=== PATIENT | female | born 1955 | race African-American/Black ===

== ENCOUNTER 2021-09-30 08:10 | Observation (INO) ==
[2021-09-30 14:27] LABS: PT Patient Result 11.3 SECS (10.5-12.0); Partial Thromboplastin Time 23.9 SECS (23.8-32.1)
[2021-09-30 14:49] LABS: Albumin 3.2 G/DL (3.4-5.0); Bilirubin,Total 0.5 MG/DL (0.20-1.00); Calcium 8.7 MG/DL (8.5-10.1); Osmolality,Calculated 281.4 MOS/KG (273-304); Potassium 5.3 MMOL/L (3.5-5.1); Thyroid Stimulating Hormone 2.08 uIU/ml (0.358-3.74); Total Protein 7.3 G/DL (6.4-8.2)
[2021-09-30] MEDS ORDERED: SODIUM CHLORIDE 0.9% 1,000 ML IV STA (15:02)
[2021-09-30 15:32] LABS: RBC,Urine 1 /HPF (0-4); Squamous Epithelial Cell,Urine Occasional /HPF (0-10)
[2021-09-30 15:33] LABS: Bilirubin,Urine Negative (Negative); Blood, Urine Negative (Negative); Glucose,Urine (UA) Negative (Negative); Ketones,Urine Negative (Negative); Nitrite,Urine Negative (Negative); Protein,Urine 100 mg/dL (Negative); Urine Appearance Clear (Clear); Urine Color Yellow (Yellow); Urine Urobilinogen 0.2 eU/dL (<2.0); Urine pH 5.5 (4.5-8.0)
[2021-09-30] MEDS ORDERED: ONDANSETRON 4 MG/2 ML VIAL IV PRN (17:05)
[2021-09-30] MEDS ORDERED: hydrALAZINE 20 MG/1 ML VIAL IV PRN (17:05)
[2021-09-30] MEDS ORDERED: ALBUTEROL/IPRATROPIUM 3 ML NEB RESP TX PRN (17:05)
[2021-09-30] MEDS ORDERED: ACETAMINOPHEN 325 MG TABLET PO PRN (17:05)
[2021-09-30] MEDS ORDERED: DOCUSATE SODIUM 100 MG CAPSULE PO PRN (17:05)
[2021-09-30] MEDS ORDERED: GLUCAGON 1 MG VIAL IM PRN (17:05)
[2021-09-30 17:10] LABS: Basophils % 0.6 % (0.0-0.8); Eosinophils # 0.4 10*3/uL (0.0-0.87); Eosinophils % 11.1 % (0.00-10.9); Hematocrit 21.5 VOL% (35.7-47.0); Hemoglobin 7.6 GM/DL (12.0-16.0); Immature Granulocytes % 0.6 %; Immature Granulocytes Absolute 0.02 #; Lymphocytes # 0.8 10*3/uL (1.4-4.0); Lymphocytes % 23.6 % (21.3-54.2); Mean Corpuscular HGB Conc 35.3 GM/DL (32-36); Mean Corpuscular Volume 105.4 FL (87-102); Mean Platelet Volume 9.9 FL (9.6-12.0); Monocytes # 0.5 10*3/uL (0.11-0.8); Monocytes % 14.5 % (1.7-12.7); Neutrophils % 49.6 % (38.7-73.9); Platelet Count 190 T/CUMM (130-400); Red Blood Count 2.04 MC/CUMM (3.8-5.5); Red Cell Distribution Width 14.7 % (9.3-17.3); White Blood Count 3.5 T/CUMM (4-12)
[2021-09-30] MEDS ORDERED: SODIUM POLYSTYRENE SULFATE 15 GM/60 ML BOTTLE PO STA (17:10)
[2021-09-30] MEDS ORDERED: DEXTROSE 10% 250 ML BAG IV PRN (17:15)
[2021-09-30 17:22] LABS: % Iron Saturation 35.5 % (18-50); Ferritin 212.6 ng/mL (8-252)
[2021-09-30 17:31] LABS: Anisocytosis 1+; Eosinophils 11 % (0-10); Hypochromia 1+; Lymphocytes 24 % (20-55); Platelet Estimate Adequate; Schistocytes 1+; Target Cells Few; Total Cells Counted 100
[2021-09-30] MEDS: SODIUM CHLORIDE 0.9% 1,000 ML IV SCH (17:37)
[2021-09-30 18:14] LABS: Sedimentation Rate-Westergren 77 MM/HR (0-30)
[2021-09-30 18:23] LABS: Folate 10.66 NG/ML (5.38-24.0); Vitamin B12 149 PG/ML (211-911)
[2021-09-30] MEDS ORDERED: CYANOCOBALAMIN 1000 MCG/1 ML VIAL IM ONE (22:00)
[2021-09-30] MEDS: hydrALAZINE 25 MG TABLET PO SCH (22:19)
[2021-10-01] MEDS: SODIUM CHLORIDE 0.9% 1,000 ML IV SCH ×2 (02:15→13:12)
[2021-10-01 05:25] LABS: Basophils % 0.9 % (0.0-0.8); Eosinophils # 0.5 10*3/uL (0.0-0.87); Eosinophils % 14.2 % (0.00-10.9); Hematocrit 18.5 VOL% (35.7-47.0); Hemoglobin 6.6 GM/DL (12.0-16.0); Immature Granulocytes % 0.6 %; Immature Granulocytes Absolute 0.02 #; Lymphocytes # 0.8 10*3/uL (1.4-4.0); Lymphocytes % 24.6 % (21.3-54.2); Mean Corpuscular HGB Conc 35.7 GM/DL (32-36); Mean Corpuscular Volume 106.3 FL (87-102); Mean Platelet Volume 9.9 FL (9.6-12.0); Monocytes # 0.4 10*3/uL (0.11-0.8); Monocytes % 12.4 % (1.7-12.7); Neutrophils % 47.3 % (38.7-73.9); Platelet Count 162 T/CUMM (130-400); Red Blood Count 1.74 MC/CUMM (3.8-5.5); Red Cell Distribution Width 14.2 % (9.3-17.3); White Blood Count 3.4 T/CUMM (4-12)
[2021-10-01 05:49] LABS: Albumin 2.9 G/DL (3.4-5.0); Bilirubin,Total 0.4 MG/DL (0.20-1.00); Calcium 8.5 MG/DL (8.5-10.1); Osmolality,Calculated 282.1 MOS/KG (273-304); Potassium 4.8 MMOL/L (3.5-5.1); Risk Ratio 2.76; Total Protein 6.5 G/DL (6.4-8.2); VLDL Cholesterol 16.8 MG/DL
[2021-10-01 05:52] LABS: Eosinophils 11 % (0-10); Lymphocytes 22 % (20-55); Platelet Estimate Adequate; Total Cells Counted 100
[2021-10-01 05:53] LABS: Hypochromia Slight; Target Cells Slight
[2021-10-01] MEDS ORDERED: SODIUM CHLORIDE 0.9% 1,000 ML IV PRN (07:08)
[2021-10-01] MEDS: amLODIPine 5 MG TABLET PO SCH (10:06)
[2021-10-01] MEDS: PANTOPRAZOLE 40 MG TABLET PO SCH (10:06)
[2021-10-01] MEDS: CYANOCOBALAMIN 1000 MCG/1 ML VIAL IM SCH (10:07)
[2021-10-01] MEDS: hydrALAZINE 25 MG TABLET PO SCH (10:13)
[2021-10-02] MEDS: SODIUM CHLORIDE 0.9% 1,000 ML IV SCH (03:23)
[2021-10-02 05:30] LABS: Basophils % 0.5 % (0.0-0.8); Eosinophils # 0.5 10*3/uL (0.0-0.87); Eosinophils % 12.8 % (0.00-10.9); Hematocrit 25.6 VOL% (35.7-47.0); Immature Granulocytes % 0.8 %; Immature Granulocytes Absolute 0.03 #; Lymphocytes # 0.6 10*3/uL (1.4-4.0); Lymphocytes % 16.8 % (21.3-54.2); Mean Corpuscular HGB Conc 35.2 GM/DL (32-36); Mean Corpuscular Volume 98.1 FL (87-102); Mean Platelet Volume 9.7 FL (9.6-12.0); Monocytes # 0.5 10*3/uL (0.11-0.8); Monocytes % 13.1 % (1.7-12.7); Platelet Count 164 T/CUMM (130-400); Red Cell Distribution Width 19.1 % (9.3-17.3); White Blood Count 3.8 T/CUMM (4-12)
[2021-10-02 05:32] LABS: Red Blood Count 2.61 MC/CUMM (3.8-5.5)
[2021-10-02 05:54] LABS: Eosinophils 9 % (0-10); Lymphocytes 12 % (20-55); Total Cells Counted 100
[2021-10-02 05:55] LABS: Platelet Estimate Adequate
[2021-10-02 05:58] LABS: Albumin 2.9 G/DL (3.4-5.0); Bilirubin,Total 0.5 MG/DL (0.20-1.00); Calcium 8.6 MG/DL (8.5-10.1); Osmolality,Calculated 280.3 MOS/KG (273-304); Potassium 4.4 MMOL/L (3.5-5.1); Total Protein 6.7 G/DL (6.4-8.2)
[2021-10-02] MEDS: PANTOPRAZOLE 40 MG TABLET PO SCH (09:36)
[2021-10-02] MEDS: amLODIPine 5 MG TABLET PO SCH (09:36)
[2021-10-02] MEDS: CYANOCOBALAMIN 1000 MCG/1 ML VIAL IM SCH (09:36)
[2021-10-02 13:35] VITALS: BP 151/77
[2021-10-03] MEDS ORDERED: CYANOCOBALAMIN 100 MCG TABLET PO SCH (09:00)
[2021-10-05 09:01] LABS: Hb A 61.3 % (95.8-98.0); Hb A2 3.4 % (2.0-3.3); Hb F 0 % (0.0-0.9); Variant 1 35.3 Hb C % (0.0)
[2021-10-05 14:12] LABS: Hemoglobin A1 (Alkaline) 60.9 % (96.5-98.5)
[2021-10-05 14:13] LABS: Hemoglobin C (Alkaline) 39.1 %
== END 2021-10-02 13:55 | disposition home or self-care (01) ==
LOC: N.EDINP 08:10 → N.ED 08:10 → N.TELES 10-01 00:52
PROVIDERS: ADMIT Hospitalist; ATTEND Hospitalist